=== PATIENT | female | born 2000 | race Hispanic/Latino ===

== ENCOUNTER 2024-05-30 18:53 | Emergency (ER) | payer OTHER ==
[~2024-05-30] VITALS: Ht 154.9 cm; Wt 47.4 kg
[2024-05-30 18:59] VITALS: TEMP 98.2
[2024-05-30] MEDS ORDERED: TACROLIMUS1 MG PO (19:14)
[2024-05-30] MEDS ORDERED: FUROSEMIDE40 MG PO (19:14)
[2024-05-30] MEDS ORDERED: MAGNESIUM OXID400 MG PO (19:14)
[2024-05-30] MEDS ORDERED: SPIRONOLACTONE25 MG PO (19:15)
[2024-05-30] MEDS ORDERED: ONDANSETRON ODT4 MG PO ×2 (19:15→21:02)
[2024-05-30] MEDS ORDERED: CIPRO500 MG PO (19:15)
[2024-05-30] MEDS ORDERED: BACLOFEN10 MG PO (19:15)
[2024-05-30] MEDS ORDERED: PANTOPRAZOLE SO40 MG PO (19:15)
[2024-05-30] MEDS ORDERED: METOCLOPRAMIDE10 MG PO (19:15)
[2024-05-30] MEDS ORDERED: URSODIOL300 MG PO (19:15)
[2024-05-30] MEDS ORDERED: FLONASE ALLERG9.9 ML INH (19:15)
[2024-05-30] MEDS ORDERED: XIFAXAN550 MG PO (19:15)
[2024-05-30] MEDS ORDERED: LACTULOSE20 GM/30 M PO (19:15)
[2024-05-30] MEDS ORDERED: ULTRAM 50MG50 MG PO (19:15)
[2024-05-30] MEDS ORDERED: HYDROXYZINE HCL10 MG PO (19:15)
[2024-05-30] MEDS ORDERED: IOPAMIDOL 370 MG/ML 100 ML INFUS..BTL INJ ONE (19:22)
[2024-05-30] MEDS: FAMOTIDINE 20 MG/2 ML VIAL IV STA (20:01)
[2024-05-30] MEDS: ONDANSETRON HCL INJ 2MG/ML 2ML 2 MG/ML VIAL IV STA (20:01)
[2024-05-30] MEDS: SODIUM CHLORIDE 0.9% 1000ML 1,000 ML IV ONE (20:02)
[2024-05-30] MEDS: FENTANYL CITRATE/PF 100MCG/2 ML INJ IV ONE (20:09)
[2024-05-30 20:11] VITALS: PULSE 104; RESP 18
[2024-05-30 21:24] VITALS: BP 101/62; PULSE 97; RESP 18; TEMP 98.5; O2SAT 99
== END 2024-05-30 21:27 | disposition home or self-care (01) ==
LOC: FSED 18:59
DX: R10.31 Right lower quadrant pain (principal); K74.60 Unspecified cirrhosis of liver; Z94.4 Liver transplant status; F41.9 Anxiety disorder, unspecified
CPT/HCPCS: 74177; 80048; 80076; 81003; 81025; 85025; 99284; J2405; J3010; J7030; Q9967